=== PATIENT | female | born 1985 | race African-American/Black ===

== ENCOUNTER 2019-11-29 10:34 | Outpatient (CLI) | payer BC, SELFPAY ==
--- NOTE | ~2019-11-29 | XR_ITS ---
EXAMINATION: XR chest 2V EXAM DATE: 11/29/2019 11:25 INDICATION: Intermittent midline chest pain and shortness of breath. TECHNIQUE: Frontal and lateral projections of the chest obtained and reviewed. Comparison is made to prior examination from 08/01/2019. FINDINGS: The lungs are clear. There are no pleural effusions. The cardiomediastinal silhouette is within normal limits. There is no pneumothorax suspected. The bones and soft tissues are unremarkab le. IMPRESSION: Normal chest x-ray exam. Reviewed, dictated and finalized at location A. LAY FABRICATION SUPERVISOR IMPRESSION: Normal chest x-ray exam.
--- NOTE | ~2019-11-29 | US_ITS ---
EXAMINATION: US soft tissue head and neck DATE: 11/29/2019 11:17 INDICATION: Generalized enlarged lymph nodes. TECHNIQUE: Multiple grayscale and Doppler ultrasound images of the submental and bilateral submandibu lar regions were obtained. COMPARISON: None FINDINGS: Bilateral submandibular glands appear normal and relatively symmetric measuring 3.6 x 1.2 x 2.7 cm on the right and 3.7 x 1.0 x 2.3 cm on the left. No abnormal subcutaneous masses, fluid collections or pathologically enlarged lymph nodes identified at the submental or bilateral submandibular regions. T here is a tiny 4 x 1 x 4 mm nodular lesion along the skin surface in the midline submental region. Th ere is increased vascularity extending to the nodule on color Doppler. IMPRESSION: 1. Nonspecific 4 x 1 x 4 mm hypervascular nodule along the skin surface at the midline of the subment al region. Correlate with physical exam and could consider biopsy as clinically indicated. 2. Otherwise unremarkable ultrasound with no pathologically enlarged lymphadenopathy in the submental or bilateral submandibular regions. Reviewed, dictated and finalized at location A. TIZER OPERATOR IMPRESSION: 1. Nonspecific 4 x 1 x 4 mm hypervascular nodule along the skin surface at the midline of the submental region. Correlate with physical exam and could conside r biopsy as clinically indicated. 2. Otherwise unremarkable ultrasound with no pathologically enlarged lymphadeno jeremiah in the submental or bilateral submandibular regions.
== END 2019-11-29 10:35 | disposition home or self-care (01) ==
PROVIDERS: PCP Internal Medicine; Visit Provider Internal Medicine
DX: R61 Generalized hyperhidrosis (principal); R59.1 Generalized enlarged lymph nodes; R07.9 Chest pain, unspecified; R06.02 Shortness of breath
CPT/HCPCS: 71046; 76536